=== PATIENT | male | born 1990 | race Caucasian/White ===

== ENCOUNTER 2017-01-30 07:00 | Emergency (ER) | payer OTHER ==
[2017-01-30 07:04] VITALS: BP 127/80; TEMP 98.2; BMI 26.6
[2017-01-30] MEDS ORDERED: DECADRON 4 MG/ML SDV IM STA (07:15)
[2017-01-30] MEDS ORDERED: BENADRYL IM STA (07:15)
--- NOTE | 2017-01-30 07:18 | ED.PDOC ---
General ED Provider: Dr. JENNIFER CHILDRESS Chief Complaint: Rash Stated Complaint: rash Time Seen by Physician: 07:00 (joe at bedside ) Mode of Arrival: Walk-In Information Source: Patient Exam Limitations: No limitations Primary Care Provider: MICHAEL MAN Nursing and Triage Documentation Reviewed and Agree: Yes Skin Complaint Exam - Skin Rash/Itching Complaint/Exam Onset/Duration: 2 days Symptoms Are: Still present Initial Severity: Moderate Current Severity: Moderate Potential Exposures: Reports: Plants Aggravating: Reports: None Alleviating: Reports: None Associated Signs and Symptoms: Denies: Difficulty breathing, Fever, Chills Skin Findings: Present: Maculae, Papules, Vesicles Differential Diagnoses: Contact Dermatitis, Poison [place] Review of Systems - Review Of Systems Constitutional: Reports: No symptoms Eyes: Reports: No symptoms Ears, Nose, Mouth, Throat: Reports: No symptoms Respiratory: Reports: No symptoms Cardiac: Reports: No symptoms GI: Reports: No symptoms : Reports: No symptoms Musculoskeletal: Reports: No symptoms Skin: Reports: Rash Neurological: Reports: No symptoms Endocrine: Reports: No symptoms Hematologic/Lymphatic: Reports: No symptoms All Other Systems: Reviewed and Negative Past Medical History - Past Medical History Previously Healthy: Yes Endocrine: Reports: None Cardiovascular: Reports: None Respiratory: Reports: None Hematological: Reports: None Gastrointestinal: Reports: None Genitourinary: Reports: None Neuro/Psych: Reports: None Musculoskeletal: Reports: None Cancer: Reports: None - Surgical History General Surgical History: Reports: None - Family History Family History: Reports: None - Social History Smoking Status: Current some day smoker Hx Substance Use: No Alcohol Screening: Occasionally Physical Exam - Physical Exam Appearance: Well-appearing, No pain distress, Well-nourished Eyes: CHELLE, EOMI, Conjunctiva clear ENT: Ears normal, Nose normal, Oropharynx normal Respiratory: Airway patent, Breath sounds clear, Breath sounds equal, Respirations nonlabored Cardiovascular: RRR, Pulses normal, No rub, No murmur GI/: Soft, Nontender, No masses, Bowel sounds normal, No Organomegaly Musculoskeletal: Normal strength, ROM intact, No edema, No calf tenderness Skin: Warm, Dry (contact dermatitis poision josefina arms neck , lower ext) Neurological: Sensation intact, Motor intact, Reflexes intact, Cranial nerves intact, Alert, Oriented Psychiatric: Affect appropriate, Mood appropriate Critical Care Note - Critical Care Note Total Time (mins): 0 Course - Course Orders, Labs, Meds: Orders Category Date Time Status Dexamethasone 4 mg/ml Inj [Decadron 4 mg/ml Sdv] MEDS 01/30/17 07:15 Stat 4 mg IM ONCE STA Diphenhydramine Inj [Benadryl] MEDS 01/30/17 07:15 Stat 25 mg IM ONCE STA Medications Discontinued Medications Generic Name Dose Route Start Last Admin Trade Name Shruti PRN Reason Stop Dose Admin Dexamethasone Sodium Phosphate 4 mg 01/30/17 07:15 Decadron 4 Mg/Ml Sdv IM 01/30/17 07:16 ONCE STA Diphenhydramine HCl 25 mg 01/30/17 07:15 Benadryl IM 01/30/17 07:16 ONCE STA Vital Signs: Temp Pulse Resp BP Pulse Ox 01/30/17 07:01 98.2 F 85 14 127/80 97 Departure - Departure Time of Disposition: 07:17 Disposition: HOME SELF-CARE Discharge Problem: Pruritic rash, Poison josefina dermatitis Instructions: Poison Josefina (ED) Condition: Good Pt referred to PMD for follow-up: No Additional Instructions: Please call your Family Physician as soon as possible to schedule a follow-up appointment. Allergies/Adverse Reactions: Allergies No Known Allergies Allergy (Unverified 01/30/17 07:04) Home Medications: Ambulatory Orders 1 [No Reported Medications] 01/30/17 Disposition Discussed With: Patient, Family
== END 2017-01-30 07:51 | disposition home or self-care (01) ==
LOC: ED 07:00
DX: L23.7 Allergic contact dermatitis due to plants, except food (principal); F17.210 Nicotine dependence, cigarettes, uncomplicated
CPT/HCPCS: 96372; 99282